=== PATIENT | male | born 1960 | race Caucasian/White ===

== ENCOUNTER 2017-09-25 17:10 | Observation (INO) | payer MEDICAID ==
[~2017-09-25] VITALS: Ht 167.6 cm; Wt 60.0 kg
[2017-09-25] MEDS ORDERED: RISP0.2518 PO (17:31)
[2017-09-25] MEDS ORDERED: LORazepam 1MG TABLET PO ONE (18:00)
[2017-09-25 18:28] LABS: BASOPHILS # (AUTO) 0.02 x10^3/uL (0-0.1); BASOPHILS % (AUTO) 0 % (0-1); EOSINOPHILS # (AUTO) 0.09 x10^3/uL (0-0.4); EOSINOPHILS % (AUTO) 2 % (1-7); LYMPHOCYTES # (AUTO) 1.51 x10^3/uL (1-3.4); LYMPHOCYTES % (AUTO) 32 % (22-44); MD NO; MEAN CORPUSCULAR HEMOGLOBIN 28.1 pg (27.5-34.5); MEAN CORPUSCULAR HGB CONC 33.4 g/dL (33.2-36.2); MEAN CORPUSCULAR VOLUME 84.2 fL (81-97); MEAN PLATELET VOLUME 8.7 fL (7.4-10.4); MONOCYTES # (AUTO) 0.37 x10^3/uL (0.2-0.8); MONOCYTES % (AUTO) 8 % (2-9); NEUTROPHILS # (AUTO) 2.69 x10^3/uL (1.8-6.8); NEUTROPHILS % (AUTO) 58 % (42-75); PLATELET COUNT 211 x10^3/uL (130-400); RED BLOOD COUNT 4.43 x10^6/uL (4.38-5.82); RED CELL DISTRIBUTION WIDTH 14.7 % (9.4-14.8)
[2017-09-25 18:38] LABS: ALBUMIN 3.6 g/dL (3.4-5.0); ANION GAP 6 mmol/L (5-15); CALCIUM 8.9 mg/dL (8.5-10.1); CHLORIDE 107 mmol/L (98-107); SALICYLATE LEVEL 2.8 mg/dL (2.8-20.0)
[2017-09-25 18:41] LABS: ALANINE AMINOTRANSFERASE 47 U/L (12-78); ALKALINE PHOSPHATASE 58 U/L (45-117); BILIRUBIN,TOTAL 0.2 mg/dL (0.2-1.0); CREATININE 0.92 mg/dL (0.7-1.3); TOTAL PROTEIN 6.7 g/dL (6.4-8.2)
[2017-09-25 18:44] LABS: ACETAMINOPHEN < 2 mcg/mL (10-30)
[2017-09-25] MEDS ORDERED: ACETAMINOPHEN 325 MG TABLET ONE (19:20)
[2017-09-25] MEDS ORDERED: ACETAMINOPHEN 325 MG TABLET PO ONE (19:30)
[2017-09-25 19:41] LABS: AMPHETAMINE SCREEN, URINE Negative (Negative); BARBITURATE SCREEN, URINE Negative (Negative); BENZODIAZEPINE SCREEN, URINE Negative (Negative); CANNABINOID SCREEN, URINE Negative (Negative); COCAINE SCREEN, URINE Negative (Negative); METHADONE SCREEN, URINE Negative (Negative); OPIATE SCREEN, URINE Negative (Negative)
[2017-09-26] MEDS ORDERED: LORazepam 1MG TABLET ONE (01:46)
[2017-09-26] MEDS ORDERED: DOCUSATE 100 MG CAPSULE PO PRN (02:30)
[2017-09-26] MEDS ORDERED: OLANZAPINE 10 MG INJ IM PRN (06:00)
[2017-09-26] MEDS ORDERED: RISPERIDONE 2 MG TABLET ONE (08:03)
[2017-09-26] MEDS ORDERED: BENZTROPINE 1 MG TABLET ONE (08:04)
[2017-09-26] MEDS: BENZTROPINE 1 MG TABLET PO SCH ×2 (08:25→20:16)
[2017-09-26] MEDS: RISPERIDONE 1 MG TABLET PO SCH ×2 (08:27→20:16)
[2017-09-26] MEDS: OLANZAPINE 10 MG TABLET PO SCH (16:24)
[2017-09-26 19:30] VITALS: BP 93/52
[2017-09-27] MEDS: ACETAMINOPHEN 325 MG TABLET PO PRN (07:55)
[2017-09-27 08:00] VITALS: BP 105/64
[2017-09-27] MEDS: BENZTROPINE 1 MG TABLET PO SCH ×2 (10:50→21:48)
[2017-09-27] MEDS: RISPERIDONE 1 MG TABLET PO SCH ×2 (10:50→21:48)
[2017-09-27 22:01] VITALS: BP 113/74
[2017-09-27] MEDS: ALUMINUM/MAG/SIMETHICONE 30 ML UDC PO PRN (22:33)
[2017-09-28] MEDS: OLANZAPINE 10 MG TABLET PO SCH (01:49)
[2017-09-28 07:30] VITALS: BP 118/80
[2017-09-28] MEDS: BENZTROPINE 1 MG TABLET PO SCH ×2 (08:52→20:16)
[2017-09-28] MEDS: RISPERIDONE 1 MG TABLET PO SCH ×2 (08:52→20:16)
[2017-09-28] MEDS: SODIUM CHLORIDE 0.9% 1,000 ML IV SCH ×2 (09:30→16:10)
[2017-09-28 10:08] LABS: MEAN CORPUSCULAR HEMOGLOBIN 27.6 pg (27.5-34.5); MEAN CORPUSCULAR HGB CONC 32.9 g/dL (33.2-36.2); MEAN CORPUSCULAR VOLUME 83.8 fL (81-97); MEAN PLATELET VOLUME 8.5 fL (7.4-10.4); PLATELET COUNT 209 x10^3/uL (130-400); RED BLOOD COUNT 4.51 x10^6/uL (4.38-5.82); RED CELL DISTRIBUTION WIDTH 15.1 % (9.4-14.8)
[2017-09-28 10:14] VITALS: BP 119/72
[2017-09-28 10:18] LABS: ALANINE AMINOTRANSFERASE 41 U/L (12-78); ALBUMIN 3.5 g/dL (3.4-5.0); ANION GAP 6 mmol/L (5-15); CALCIUM 8.6 mg/dL (8.5-10.1); CHLORIDE 107 mmol/L (98-107); CREATININE 0.86 mg/dL (0.7-1.3)
[2017-09-28 10:20] LABS: ALKALINE PHOSPHATASE 65 U/L (45-117); BILIRUBIN,TOTAL 0.3 mg/dL (0.2-1.0); TOTAL PROTEIN 6.9 g/dL (6.4-8.2)
[2017-09-28 10:26] LABS: BASOPHILS # (AUTO) 0.01 x10^3/uL (0-0.1); BASOPHILS % (AUTO) 0 % (0-1); EOSINOPHILS # (AUTO) 0.09 x10^3/uL (0-0.4); EOSINOPHILS % (AUTO) 1 % (1-7); LYMPHOCYTES # (AUTO) 1.08 x10^3/uL (1-3.4); LYMPHOCYTES % (AUTO) 9 % (22-44); MD SCAN; MONOCYTES # (AUTO) 1.06 x10^3/uL (0.2-0.8); MONOCYTES % (AUTO) 9 % (2-9); NEUTROPHILS # (AUTO) 9.88 x10^3/uL (1.8-6.8); NEUTROPHILS % (AUTO) 82 % (42-75)
[2017-09-28 11:27] LABS: CLOSTRIDIUM DIFFICILE ANTIGEN NEGATIVE; CLOSTRIDIUM DIFFICILE TOXIN NEGATIVE (Negative)
[2017-09-28 13:16] VITALS: BP 123/77
[2017-09-28] MEDS ORDERED: LOPERAMIDE 2 MG CAPSULE PO ONE (13:30)
[2017-09-28 19:00] VITALS: BP 120/73
[2017-09-28 19:35] VITALS: BP 148/86
[2017-09-28] MEDS: ACETAMINOPHEN 325 MG TABLET PO PRN (20:16)
[2017-09-28] MEDS: ALUMINUM/MAG/SIMETHICONE 30 ML UDC PO PRN (20:19)
[2017-09-28 22:38] VITALS: BP 110/55
[2017-09-28] MEDS: LOPERAMIDE 2 MG CAPSULE PO PRN (22:40)
[2017-09-29 07:45] VITALS: BP 109/72
[2017-09-29] MEDS: BENZTROPINE 1 MG TABLET PO SCH ×2 (09:36→20:39)
[2017-09-29] MEDS: RISPERIDONE 1 MG TABLET PO SCH ×2 (09:36→20:39)
[2017-09-29] MEDS: ONDANSETRON ODT 4 MG PO PRN ×2 (16:12→20:40)
[2017-09-29 20:03] VITALS: BP 121/72
[2017-09-30 08:30] VITALS: BP 97/71
[2017-09-30] MEDS: BENZTROPINE 1 MG TABLET PO SCH ×2 (09:15→20:51)
[2017-09-30] MEDS: RISPERIDONE 1 MG TABLET PO SCH ×2 (09:15→20:51)
[2017-09-30 20:00] VITALS: BP 96/61
[2017-09-30] MEDS: ONDANSETRON ODT 4 MG PO PRN (20:51)
[2017-10-01] MEDS: LOPERAMIDE 2 MG CAPSULE PO PRN (06:23)
[2017-10-01 07:22] VITALS: BP 104/68
[2017-10-01] MEDS: BENZTROPINE 1 MG TABLET PO SCH ×2 (08:14→20:28)
[2017-10-01] MEDS: RISPERIDONE 1 MG TABLET PO SCH ×2 (08:14→20:27)
[2017-10-01] MEDS: NICOTINE 21 MG/24 HR PATCH.TD24 TD SCH (09:59)
[2017-10-01] MEDS: ALUMINUM/MAG/SIMETHICONE 30 ML UDC PO PRN (17:19)
[2017-10-01 19:37] VITALS: BP 118/54
[2017-10-02] MEDS: ALUMINUM/MAG/SIMETHICONE 30 ML UDC PO PRN (04:26)
[2017-10-02 07:33] VITALS: BP 90/49
[2017-10-02] MEDS: RISPERIDONE 1 MG TABLET PO SCH (07:59)
[2017-10-02] MEDS: NICOTINE 21 MG/24 HR PATCH.TD24 TD SCH (07:59)
[2017-10-02] MEDS: BENZTROPINE 1 MG TABLET PO SCH (07:59)
== END 2017-10-02 12:44 | disposition home or self-care (01) ==
LOC: ED 19:21 → EDIP 09-26 02:03 → 3E 09-26 12:22 → 4EST 09-28 10:25 → 3E 09-28 22:35
PROVIDERS: ADMIT Internal Medicine; ATTEND Hospitalist
DX: F23 Brief psychotic disorder (principal); F60.0 Paranoid personality disorder; F20.1 Disorganized schizophrenia; R19.7 Diarrhea, unspecified; D72.829 Elevated white blood cell count, unspecified; I10 Essential (primary) hypertension
CPT/HCPCS: 36415; 80053; 80307; 80329; 83735; 84100; 85025; 87046; 87077; 87324; 87427; 93005; 99285; G0378; Q0162; G0480